=== PATIENT | male | born 1985 | race Caucasian/White ===

== ENCOUNTER → 2019-01-18 | Outpatient (CLI) | payer OTHER ==
--- NOTE | 2019-01-18 10:10 | MRI ---
EXAM DESCRIPTION: Cervical Spine CLINICAL HISTORY: CERVICALGIA COMPARISON: CT cervical spine August 02, 2009 TECHNIQUE: MRI of the cervical spine is performed according to our usual protocol. FINDINGS: Sagittal T2 images reveal decreased signal intensity within the intervertebral discs. Normal T2 appearance of the cervical cord. Posterior discal abnormalities are most prominent at the C5-6 and C6-7 levels. Sagittal T1 images show benign marrow signal characteristics. Normal T1 appearance of the cervical and upper thoracic spinal cord. Normal alignment of the vertebral bodies and facets. Sagittal STIR images are negative for high signal intensity marrow edema within the vertebral bodies or posterior elements. No paraspinous fluid collection or cystic lesion. Axial images were obtained to evaluate the disc levels. C2-3: Normal posterior disc margin with no spinal stenosis or neural foraminal narrowing. Mild facet hypertrophic changes. Normal appearance of the cord at this level. C3-4: Normal posterior disc margin with no spinal stenosis. There is mild right neural foraminal narrowing related to uncovertebral joint and facet spurring. Mild facet hypertrophy bilaterally. Normal appearance of the cord at this level. C4-5: Normal posterior disc margin with no spinal stenosis or neural foraminal narrowing. Moderate facet hypertrophic changes.. Normal appearance of the cord at this level. C5-6: Prominent diffuse posterior disc/osteophyte complex is seen effacing CSF anterior and posterior to the cord. AP diameter spinal canal is decreased to 7 mm. Cord appears slightly compressed. Moderate left neural foraminal narrowing is related to uncovertebral joint spurring with moderately severe narrowing of the entry zone to the right neural foramen related to posterior right lateral accentuation of disc/osteophyte complex. C6-7: Moderate diffuse posterior disc/osteophyte complex with left paracentral accentuation effaces CSF anterior and posterior the cord. There is mild ventral flattening of the cord. AP diameter of the spinal canal is 7 mm. Mild left and moderate right neural foraminal narrowing is related to uncovertebral joint and facet spurring. C7-T1: Normal posterior disc margin with no spinal stenosis or neural foraminal narrowing. Facets appear normal. Normal appearance of the cord at this level. Previous CT of the cervical spine August 02, 2009 showed reversal of the normal cervical lordosis. Discogenic disease was not seen at that time. IMPRESSION: Prominent posterior disc/osteophyte complexes at C5-6 and C6-7 with spinal stenosis and mild flattening of the cord. Electronically signed by: Tal Richter MD 01/18/2019 10:06 AM CDT
== END ==
LOC: MRI 08:49
PROVIDERS: ATTEND Emergency Medicine
DX: M48.02 Spinal stenosis, cervical region (principal); M25.78 Osteophyte, vertebrae

== ENCOUNTER 2019-10-03 19:57 | Emergency (ER) | payer BC, OTHER ==
--- NOTE | 2019-10-03 20:23 | ED.PDOC ---
History of Present Illness - General Chief Complaint: Head Injury Stated Complaint: hit on head with golf ball Time Seen by Provider: 10/03/19 20:21 Additional Information: Patient is a 34-year-old male who presents to the ED with complaints of slight depression to forehead where he was hit with a golf ball 2 days ago. Patient denies headache, nausea, vomiting, dizziness. Patient was playing golf and was hit in the head with a golf ball. 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 Patient indicates he is completely asymptomatic but is concerned that he has a slight indentation in his forehead at the site of where the golf ball impacted. There are no other concerns today. - History of Present Illness Allergies/Adverse Reactions: Allergies NO KNOWN ALLERGY Allergy (Verified 11/05/15 00:11) Home Medications: Ambulatory Orders NK 11/05/15 Review of Systems - Review of Systems Constitutional: States: no symptoms reported EENTM: States: no symptoms reported Respiratory: States: no symptoms reported Cardiology: States: no symptoms reported Gastrointestinal/Abdominal: States: no symptoms reported Neurological: Denies: headache, numbness, paresthesia, seizure, weakness All other Systems: Reviewed and Negative Past Medical History (General) - Patient Medical History Hx Diabetes: No - Social History Hx Tobacco Use: No Hx Alcohol Use: Yes Hx Substance Use: No Hx Substance Use Treatment: No Hx Depression: No Family Medical History - Family History Mother Family History: Unknown Living Status: Physical Exam - Physical Exam General Appearance: Alert, Comfortable, No apparent distress, Well Developed, Well Nourished Head Injury: other - Patient with very mild edema to the upper left aspect of his forehead. Within this edematous area is a slight indentation. There is no bony step-off. Site is essentially nontender. No laceration or abrasion. No hematoma. No ecchymoses. 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 Patient is asymptomatic, and I have reassured him that there is a 0 concern for closed head injury. There is no indication for acute imaging at this time. Vital signs stable, patient NAD and looks clinically well, and I believe is safe for discharge with outpatient follow-up. Follow-up instructions, discharge instructions and return to ED precautions discussed with patient. Patient voices understanding and willingness to comply with instructions. All questions answered. Patient is happy with plan. Departure - Departure Clinical Impression: Contusion of scalp, initial encounter Time of Disposition: 20:27 Disposition: Discharge to Home or Self Care Condition: Good Departure Forms: ED Discharge - Pt. Copy, Patient Portal Self Enrollment Instructions: DI for Closed Head Injury, Minor Head Injury (DC) Referrals: Dave Chacko MD [Primary Care Provider] - 1-2 Weeks Home Medications: Ambulatory Orders NK 11/05/15
[2019-10-03 20:39] VITALS: TEMP 97.7; O2SAT 97
[2019-10-03 20:45] VITALS: BP 141/86
== END 2019-10-03 20:45 | disposition home or self-care (01) ==
LOC: ER 19:57
DX: S00.03XA Contusion of scalp, initial encounter (principal); W21.04XA Struck by golf ball, initial encounter; Y92.9 Unspecified place or not applicable; Y93.53 Activity, golf

== ENCOUNTER → 2020-02-13 | Outpatient (CLI) | payer BC ==
--- NOTE | 2020-02-13 08:25 | MRI ---
EXAM DESCRIPTION: Shoulder,Left CLINICAL HISTORY: 34 years, Male, LEFT ROTATOR CUFF TEAR, left shoulder pain, limited range of motion, no known injury. COMPARISON: None TECHNIQUE: MRI of the left shoulder was performed with multiplanar multi sequence imaging without intravenous contrast. FINDINGS: Rotator tendons: The supraspinatus, infraspinatus, subscapularis and teres minor tendons are intact. Rotator muscles: No rotator cuff muscle atrophy. Glenoid labrum: Limited evaluation of the labrum is within normal limit. A sublabral foramen is noted (series 301 image eight). Acromion: The acromion morphology is type three. Moderate bone marrow edema is noted at the distal clavicle and acromion surrounding the acromioclavicular joint. Minimal joint fluid is present. The inferior joint capsule and acromioclavicular ligament is edematous. The superior acromioclavicular ligament/capsule is intact. Edema/mild inflammation extends from the AC joint over the supraspinatus muscle belly. The coracoclavicular and coracoacromial ligaments are intact. Mild lateral downsloping of the acromion. Bone and joints: The glenohumeral joint is intact. No full-thickness cartilage defect. Biceps tendon: Normal course and morphology of the biceps tendon long head within the bicipital groove. The biceps labral anchor appears intact. Soft tissues: No solid or cystic mass is seen. Trace myofascial fluid along the posterior supraspinatus muscle belly. Trace subacromial/subdeltoid bursitis. IMPRESSION: 1. Acromioclavicular joint bone marrow edema with [id number] surrounding capsulitis and inflammation. Etiology includes trauma and overuse. 2. Intact rotator cuff. 3. Type III acromion and mild lateral downsloping of the acromion can be caused by external impingement upon the rotator cuff. 4. Trace subacromial/subdeltoid bursitis. Electronically signed by: Pawan Salas DO 02/13/2020 8:23 AM CDT
== END ==
LOC: MRI 07:00
PROVIDERS: ATTEND General Practice
DX: M75.01 Adhesive capsulitis of right shoulder (principal); M75.51 Bursitis of right shoulder; R60.9 Edema, unspecified

== ENCOUNTER → 2020-03-22 | Outpatient (CLI) | payer BC ==
--- NOTE | 2020-03-22 14:30 | RAD ---
EXAM DESCRIPTION: Cervical Spine, 2-3 Views (accession [id number]), Cervical Spine,Flex/Ext (accession [id number]) CLINICAL HISTORY: CERVICAL RADICULOPATHY COMPARISON: None Available. TECHNIQUE: AP/lateral/flexion and extension x-ray views of the C-spine FINDINGS: Reversal of the normal cervical lordosis with visualization of C1-C7. No fracture or subluxation. No prevertebral soft tissue swelling. Normal craniocervical alignment. There is preservation of the spinal laminar line. No spinous process avulsion. Lateral extension view shows normal range of motion and no subluxation to suggest instability. Lateral flexion view shows no instability. Normal preservation of posterior vertebral body line and posterior laminar line. Normal craniocervical alignment. No widening of the atlantodens interval. AP view shows normal spinous process alignment with normal alignment of the lateral masses. Lung apices are clear. IMPRESSION: Mild reversal of the normal cervical lordosis. Normal cervical flexion and extension. Electronically signed by: Tal Richter MD 03/22/2020 2:28 PM CDT
--- NOTE | 2020-03-22 14:30 | RAD ---
EXAM DESCRIPTION: Cervical Spine, 2-3 Views (accession [id number]), Cervical Spine,Flex/Ext (accession [id number]) CLINICAL HISTORY: CERVICAL RADICULOPATHY COMPARISON: None Available. TECHNIQUE: AP/lateral/flexion and extension x-ray views of the C-spine FINDINGS: Reversal of the normal cervical lordosis with visualization of C1-C7. No fracture or subluxation. No prevertebral soft tissue swelling. Normal craniocervical alignment. There is preservation of the spinal laminar line. No spinous process avulsion. Lateral extension view shows normal range of motion and no subluxation to suggest instability. Lateral flexion view shows no instability. Normal preservation of posterior vertebral body line and posterior laminar line. Normal craniocervical alignment. No widening of the atlantodens interval. AP view shows normal spinous process alignment with normal alignment of the lateral masses. Lung apices are clear. IMPRESSION: Mild reversal of the normal cervical lordosis. Normal cervical flexion and extension. Electronically signed by: Tal Richter MD 03/22/2020 2:28 PM CDT
== END ==
LOC: RAD 11:25
PROVIDERS: ATTEND Neurological Surgery
DX: M54.12 Radiculopathy, cervical region (principal); M43.8X2 Other specified deforming dorsopathies, cervical region